=== PATIENT | female | born 1990 | race Hispanic/Latino ===

== ENCOUNTER → 2021-04-22 | Outpatient (REF) | payer OTHER ==
[2021-04-22 16:37] LABS: BASO # 0.1 10^3/uL (0.0-0.2); BASO % 0.7 % (0.0-1.0); EOS # 0.1 10^3/uL (0.0-0.5); EOS % 0.6 % (0.0-3.0); HEMATOCRIT 40.2 % (36.0-47.0); LYMPH # 2.5 10^3/uL (1.5-5.0); LYMPH % 29.1 % (24.0-44.0); MEAN CORPUSCULAR HEMOGLOBIN 30.4 pg (27.0-33.0); MEAN CORPUSCULAR HGB CONC 34.8 g/dl (32.0-36.5); MEAN CORPUSCULAR VOLUME 87.4 fl (80.0-96.0); MONO # 0.7 10^3/uL (0.0-0.8); MONO % 7.5 % (2.0-8.0); NEUTROPHILS # 5.4 10^3/uL (1.5-8.5); NEUTROPHILS % 61.5 % (36.0-66.0); PLATELET COUNT, AUTOMATED 320 10^3/uL (150-450); WHITE BLOOD COUNT 8.7 10^3/uL (4.0-10.0)
[2021-04-22 18:06] LABS: HCG, SERUM QUANTITATIVE 14241 MIU/ML; HEPATITIS B SURFACE ANTIGEN NEGATIVE (NEGATIVE); HEPATITIS C VIRUS ABY INDEX 0.1 INDEX (<0.8); HIV 1&2 SCREEN CENTAUR NEGATIVE (NEGATIVE)
== END ==
LOC: M LAB REF 16:06
PROVIDERS: ATTEND Obstetrics & Gynecology
DX: Z32.01 Encounter for pregnancy test, result positive (principal)

== ENCOUNTER → 2021-06-11 | Outpatient (CLI) | payer OTHER ==
[2021-06-11 17:19] LABS: BASO % 0.5 % (0.0-1.0); EOS % 0.3 % (0.0-3.0); HEMOGLOBIN 13.3 g/dl (12.0-15.5); LYMPH # 1.8 10^3/uL (1.5-5.0); LYMPH % 20.5 % (24.0-44.0); MEAN CORPUSCULAR HEMOGLOBIN 30.4 pg (27.0-33.0); MEAN CORPUSCULAR HGB CONC 34.1 g/dl (32.0-36.5); MEAN CORPUSCULAR VOLUME 89.2 fl (80.0-96.0); MONO # 0.5 10^3/uL (0.0-0.8); MONO % 5.4 % (2.0-8.0); NEUTROPHILS # 6.3 10^3/uL (1.5-8.5); NEUTROPHILS % 72.6 % (36.0-66.0); PLATELET COUNT, AUTOMATED 269 10^3/uL (150-450); RED BLOOD COUNT 4.37 10^6/uL (4.00-5.40); WHITE BLOOD COUNT 8.7 10^3/uL (4.0-10.0)
[2021-06-11 18:27] LABS: HIV 1&2 SCREEN CENTAUR NEGATIVE (NEGATIVE)
[2021-06-11 18:59] LABS: GC DNA AMPLIFICATION NEGATIVE (NEGATIVE)
== END ==
LOC: M PLALAB 15:16
PROVIDERS: ATTEND Specialist
DX: Z34.81 Encounter for supervision of other normal pregnancy, first trimester (principal); Z3A.00 Weeks of gestation of pregnancy not specified

== ENCOUNTER → 2021-07-29 | Outpatient (CLI) | payer OTHER | LOC: M WHC 13:00 | PROVIDERS: ATTEND Advanced Practice Midwife | DX: Z34.02 Encounter for supervision of normal first pregnancy, second trimester (principal); Z3A.19 19 weeks gestation of pregnancy ==

== ENCOUNTER → 2021-09-10 | Outpatient (CLI) | payer OTHER ==
[2021-09-10 15:20] LABS: HEMATOCRIT 35.3 % (36.0-47.0); HEMOGLOBIN 11.9 g/dl (12.0-15.5); MEAN CORPUSCULAR HEMOGLOBIN 31.2 pg (27.0-33.0); MEAN CORPUSCULAR HGB CONC 33.7 g/dl (32.0-36.5); MEAN CORPUSCULAR VOLUME 92.7 fl (80.0-96.0); PLATELET COUNT, AUTOMATED 245 10^3/uL (150-450); RED BLOOD COUNT 3.81 10^6/uL (4.00-5.40); WHITE BLOOD COUNT 9.9 10^3/uL (4.0-10.0)
[2021-09-10 17:04] LABS: GC DNA AMPLIFICATION NEGATIVE (NEGATIVE)
== END ==
LOC: M PLALAB 13:11
PROVIDERS: ATTEND Specialist
DX: Z34.82 Encounter for supervision of other normal pregnancy, second trimester (principal); Z3A.00 Weeks of gestation of pregnancy not specified
CPT/HCPCS: 36415; 82950; 85027; 86850; 86900; 86901; 87810; 87850; G0463

== ENCOUNTER → 2021-09-24 | Outpatient (CLI) | payer OTHER | LOC: M LAB 06:53 | PROVIDERS: ATTEND Specialist | DX: Z34.02 Encounter for supervision of normal first pregnancy, second trimester (principal) ==

== ENCOUNTER → 2021-11-12 | Outpatient (REF) | payer OTHER | LOC: M PLALAB 16:11 | PROVIDERS: ATTEND Advanced Practice Midwife | DX: Z53.9 Procedure and treatment not carried out, unspecified reason (principal) ==

== ENCOUNTER → 2021-11-18 | Outpatient (REF) | payer OTHER | LOC: M SFHCWAGY 17:02 | PROVIDERS: ATTEND Advanced Practice Midwife | DX: O24.419 Gestational diabetes mellitus in pregnancy, unspecified control (principal); Z3A.36 36 weeks gestation of pregnancy ==

== ENCOUNTER 2021-12-03 19:29 | Inpatient (IN) | payer OTHER ==
[~2021-12-03] VITALS: Ht 167.6 cm; Wt 81.9 kg
[2021-12-03 19:51] VITALS: BP 141/93
[2021-12-03] MEDS ORDERED: PRENTAB9 PO (20:12)
[2021-12-03 20:17] VITALS: BP 130/74
[2021-12-03 20:39] LABS: HEMATOCRIT 37.1 % (36.0-47.0); HEMOGLOBIN 12.9 g/dl (12.0-15.5); MEAN CORPUSCULAR HEMOGLOBIN 31.3 pg (27.0-33.0); MEAN CORPUSCULAR HGB CONC 34.8 g/dl (32.0-36.5); PLATELET COUNT, AUTOMATED 214 10^3/uL (150-450); RED BLOOD COUNT 4.12 10^6/uL (4.00-5.40)
[2021-12-03 21:27] VITALS: BP 143/85
[2021-12-03 22:03] VITALS: BP 148/75
[2021-12-03 22:39] VITALS: BP 132/85
[2021-12-03] MEDS ORDERED: PENICILLIN G POTASSIUM IV 5 MU in D5W MINI-BAG PLUS 100 ML IV STA (22:48)
[2021-12-03] MEDS ORDERED: LIDOCAINE 1% MDV 20ML VIAL INFIL PRN (22:50)
[2021-12-03] MEDS ORDERED: OXYTOCIN INJ 10 UNITS/ML VIAL (J2590) IM PRN (22:50)
[2021-12-03] MEDS ORDERED: OXYTOCIN DRIP 30 UNITS in IV 1 EA IV PRN ×4 (22:50)
[2021-12-03] MEDS ORDERED: CARBOPROST TROMETHAMINE 250 MCG/ML AMP IM PRN (22:50)
[2021-12-03] MEDS ORDERED: TRANEXAMIC ACID INJection 1,000 MG in NS 100 ML IV PRN (22:50)
[2021-12-03] MEDS: miSOPROStol 50MCG 1/2 TABLET PO SCH (23:04)
[2021-12-03 23:05] VITALS: BP 141/86
[2021-12-04] VITALS (39 sets, daily range): BP systolic 100–155; BP diastolic 51–97
[2021-12-04 00:29] LABS: ALT/SGPT 15 U/L (12-78); BILIRUBIN,TOTAL 0.4 MG/DL (0.2-1.0); CREATININE FOR GFR 0.83 MG/DL (0.55-1.30); GLOMERULAR FILTRATION RATE > 60.0 (>60); LDH LACTATE DEHYDROGENASE 170 U/L (84-246); URIC ACID 5.2 MG/DL (2.6-6.0)
[2021-12-04 01:06] LABS: CREATININE,RANDOM URINE 42.1 MG/DL; TOTAL PROTEIN,RANDOM URINE 5.7 MG/DL (0.0-12.0)
[2021-12-04] MEDS ORDERED: PENICILLIN G POTASSIUM IV 2.5 MU in IV 1 EA IV SCH (02:50)
[2021-12-04] MEDS: miSOPROStol 50MCG 1/2 TABLET PO SCH (03:19)
[2021-12-04] MEDS ORDERED: LR 1,000 ML IV ONE (06:50)
[2021-12-04] MEDS ORDERED: PENICILLIN G POTASSIUM IV 5 MU in D5W MINI-BAG PLUS 100 ML IV STA (07:29)
[2021-12-04] MEDS ORDERED: FENTANYL 2MCG/ML ROPIVACAINE 0.2% IN 0.9% NACL 100ML IVBAG As Ordered ONE (07:44)
[2021-12-04] MEDS ORDERED: OXYTOCIN DRIP 30 UNITS in IV 1 EA IV SCH ×2 (11:20→11:35)
[2021-12-04] MEDS: LR 1,000 ML IV SCH ×3 (11:28→21:23)
[2021-12-04] MEDS: PENICILLIN G POTASSIUM IV 2.5 MU in IV 1 EA IV SCH ×4 (11:28→23:28)
[2021-12-04] MEDS ORDERED: ePHEDrine SULFATE 25 MG/5 ML(5MG/ML) SYRINGE IVP PRN (13:35)
[2021-12-04] MEDS ORDERED: EPIDURAL/PCA KEYS XX PRN (13:35)
[2021-12-04] MEDS ORDERED: LR 500 ML IV PRN (13:35)
[2021-12-04] MEDS ORDERED: ONDANSETRON 4MG 2ML VIAL IV PRN (13:35)
[2021-12-04] MEDS ORDERED: NALOXONE INJ 0.4MG/1ML VIAL (J2310 PER 1MG) IV PRN (13:35)
[2021-12-04] MEDS ORDERED: diphenhydrAMINE 50MG/ML VIAL (J1200) IV PRN (13:35)
[2021-12-04] MEDS: FENTANYL/ROPIVACAINE/NACL BAG 100 ML EPIDURAL SCH ×2 (14:08→21:47)
[2021-12-05] VITALS (14 sets, daily range): BP systolic 116–167; BP diastolic 64–81
[2021-12-05] MEDS ORDERED: ACETAMINOPHEN TAB 650MG DOSE (2X325MG) PO PRN (03:30)
[2021-12-05] MEDS ORDERED: ONDANSETRON 4MG 2ML VIAL IV PRN (03:30)
[2021-12-05] MEDS ORDERED: ACETAMINOPHEN 500 MG TAB PO PRN (03:30)
[2021-12-05] MEDS: PENICILLIN G POTASSIUM IV 2.5 MU in IV 1 EA IV SCH (03:30)
[2021-12-05] MEDS ORDERED: ANUSOL HC CREAM 30GM TOP PRN (03:30)
[2021-12-05] MEDS ORDERED: DIBUCAINE 1% OINTMENT 30GM TOP PRN (03:30)
[2021-12-05] MEDS ORDERED: OXYTOCIN DRIP 30 UNITS in IV 1 EA IV SCH (03:30)
[2021-12-05] MEDS ORDERED: RHOGAM 300 MCG (1500 IU) INJ (J2790) IM SCH (03:30)
[2021-12-05] MEDS ORDERED: IBUPROFEN 600MG TAB PO PRN (03:30)
[2021-12-05] MEDS: LR 1,000 ML IV SCH ×4 (03:30→16:25)
[2021-12-05] MEDS ORDERED: DOCUSATE SODIUM 100MG CAPSULE PO PRN (03:30)
[2021-12-05] MEDS: PRENATAL VITAMINS CHEWABLE TABLET PO SCH (09:21)
[2021-12-05] MEDS: IBUPROFEN 800 MG TAB PO PRN (21:12)
[2021-12-06 06:04] VITALS: BP 113/76
[2021-12-06] MEDS: PRENATAL VITAMINS CHEWABLE TABLET PO SCH (08:08)
[2021-12-06 18:00] VITALS: BP 119/67
[2021-12-06] MEDS: IBUPROFEN 800 MG TAB PO PRN (19:51)
[2021-12-07] MEDS: IBUPROFEN 800 MG TAB PO PRN (05:33)
[2021-12-07 06:00] VITALS: BP 126/69
[2021-12-07] MEDS ORDERED: MEASLES,MUMPS,RUBELLA VACCINE INJ (MMR-II) (90707) SC.IMMUN ONE (09:00)
[2021-12-07] MEDS: PRENATAL VITAMINS CHEWABLE TABLET PO SCH (09:30)
== END 2021-12-07 13:25 | disposition home or self-care (01) | DRG 807 ==
LOC: M LDI 19:29 → M OBS 12-05 05:26
PROVIDERS: ADMIT Advanced Practice Midwife; ATTEND Advanced Practice Midwife
PROC: 10E0XZZ Delivery of Products of Conception, External Approach (ICD-10-PCS; principal; 2021-12-05)
PROC: 0KQM0ZZ Repair Perineum Muscle, Open Approach (ICD-10-PCS; 2021-12-05)
DX: O70.1 Second degree perineal laceration during delivery (principal); Z37.0 Single live birth; Z3A.39 39 weeks gestation of pregnancy

== ENCOUNTER → 2022-02-17 | Outpatient (CLI) | payer OTHER ==
[~2022-02-17] MED LIST: PRENTAB9 PO
== END ==
LOC: M LAB 07:55
PROVIDERS: ATTEND Obstetrics & Gynecology
DX: Z86.32 Personal history of gestational diabetes (principal)

== ENCOUNTER → 2022-05-18 | Outpatient (REF) | payer OTHER | LOC: M PLALAB 15:29 | PROVIDERS: ATTEND Obstetrics & Gynecology | DX: Z12.4 Encounter for screening for malignant neoplasm of cervix (principal) ==

== ENCOUNTER → 2022-10-05 | Outpatient (CLI) | payer OTHER | LOC: M SOG 09:59 | PROVIDERS: ATTEND Physician Assistant | DX: M25.532 Pain in left wrist (principal) ==